=== PATIENT | female | born 2000 | race Two or more races ===

== ENCOUNTER 2023-06-30 11:42 | Outpatient (CLI) | payer OTHER ==
[~2023-06-30 11:42] MED LIST: TRILEPTAL300 MG
== END 2023-06-30 11:47 | disposition home or self-care (01) ==
LOC: RAD 11:42
PROVIDERS: ATTEND Orthopaedic Surgery
DX: M25.571 Pain in right ankle and joints of right foot (principal)
CPT/HCPCS: 73721

== ENCOUNTER 2025-01-17 09:46 | Outpatient (CLI) | payer OTHER | END 2025-01-19 15:22 | disposition home or self-care (01) | LOC: MRI 09:46 | PROVIDERS: ATTEND Internal Medicine Gastroenterology | DX: M25.511 Pain in right shoulder (principal) | CPT/HCPCS: 73221 ==

== ENCOUNTER 2025-03-29 08:24 | Outpatient (CLI) | payer OTHER | END 2025-03-30 08:52 | disposition home or self-care (01) | LOC: MRI 08:24 | DX: G40.209 Localization-related (focal) (partial) symptomatic epilepsy and epileptic syndromes with complex partial seizures, not intractable, without status epilepticus (principal) | CPT/HCPCS: 70553 ==